=== PATIENT | male | born 1950 | race Caucasian/White ===

== ENCOUNTER 2017-04-26 07:27 | Inpatient (IN) | payer OTHER ==
--- NOTE | 2017-04-11 12:59 | DIAGNOSTIC IMAGING REPORT ---
CHEST 2 VIEWS ROUTINE CLINICAL HISTORY: Primary Osteoarthritis, Left Shoulder. PRE OP COMPARISON STUDY: No previous studies for comparison. FINDINGS: The heart is mildly enlarged. There is aortic tortuosity. There is no failure. There is no focal pulmonary consolidation. There is ankylosis the dorsal spine. No pleural effusions are visualized.[ IMPRESSION: No active disease in the chest. Electronically signed by: Panchito Toscano M.D. 04/11/2017 12:58 PM Dictated Date/Time: 04/11/2017 12:57 PM
[2017-04-11 13:22] LABS: BASO % 0.5 %; BASO ABS # 0.03 K/uL (0-0.2); COMPLETE YES; EOS % 2.8 %; HEMATOCRIT 47.8 % (42-52); IG% 0.3 %; LYMPH % 35.9 %; LYMPH ABS # 2.22 K/uL (1.2-3.4); MEAN CELL VOLUME 94.7 fL (80-100); MEAN CORPUSCULAR HEMOGLOBIN 32.5 pg (25-34); MEAN CORPUSCULAR HGB CONC 34.3 g/dl (32-36); MEAN PLATELET VOLUME 10.5 fL (7.4-10.4); MONO % 9.1 %; NEUT % 51.4 %; PLATELET COUNT 241 K/uL (130-400); RED BLOOD COUNT 5.05 M/uL (4.7-6.1); WHITE BLOOD COUNT 6.18 K/uL (4.8-10.8)
[2017-04-11 13:32] LABS: URINE APPEARANCE CLEAR (CLEAR); URINE BILIRUBIN NEG (NEG); URINE COLOR YELLOW; URINE NITRITE NEG (NEG); URINE PH 5.5 (4.5-7.5); URINE SPECIFIC GRAVITY 1.018 (1.000-1.030); UROBILINOGEN NEG (NEG); ZZUR CULT IF INDIC CLEAN CATCH NO
[2017-04-11 13:35] LABS: PROTHROMBIN TIME (PATIENT) 10.7 SECONDS (9.0-12.0)
[2017-04-11 13:39] LABS: MANUAL MICROSCOPIC REQUIRED? NO; REVIEW REQ? NO
[2017-04-11 13:49] LABS: BLOOD UREA NITROGEN 20 mg/dl (7-18); BUN/CREATININE RATIO 19.2 (10-20); CALCIUM 9.5 mg/dl (8.5-10.1); CARBON DIOXIDE 30 mmol/L (21-32); CHLORIDE 101 mmol/L (98-107); CREATININE 1.03 mg/dl (0.60-1.40); GLUCOSE 94 mg/dl (70-99); POTASSIUM 3.8 mmol/L (3.5-5.1); SODIUM 138 mmol/L (136-145)
[2017-04-18 08:53] VITALS: BMI 43.0
--- NOTE | 2017-04-25 13:12 | History and Physical ---
History & Physical Date Apr 25, 2017. Chief Complaint Patient presents as a 66-year-old white male with complaints of ongoing pain about his left shoulder cyst with of the left glenohumeral DJD failed attempts at viscus supplementation cortical steroid injections physical therapy relative rest activity modification and anti-inflammatories presents for left shoulder hemiarthroplasty versus total shoulder arthroplasty History of Present Illness The patient is a 66 year old male with complaints of Additional History Hepatic Disease: No Endocrine Disorder: No Kidney Disease: No Hypertension: Yes Heart Disease: No Bleeding Tendencies: No Infectious Diseases: No Allergies Coded Allergies: No Known Allergies (Unverified , 04/18/17) Home Medications Scheduled Amlodipine (Norvasc), 5 MG PO HS Cholecalciferol (Vitamin D3), 2,000 UNIT PO QAM Cyanocobalamin (Vitamin B-12), 1,000 MCG PO QAM Escitalopram (Lexapro), 10 MG PO QAM Hctz/Losartan (Hyzaar 25MG/100MG), 1 TAB PO QAM Pravastatin (Pravachol ), 20 MG PO HS Tamsulosin Hcl (Flomax), 0.4 MG PO QPM Physical Examination Skin: warm/dry, no rash Eyes: normal inspection, EOMI, sclerae normal ENT: normal ENT inspection, pharynx normal Head: normocephalic, atraumatic Neck: supple, no adenopathy, trachea midline Respiratory/Chest: lungs clear, normal breath sounds, no respiratory distress Cardiovascular: regular rate, rhythm, no edema, no murmur Abdomen / GI: normal bowel sounds, non tender Back: normal inspection Extremities: normal inspection, normal range of motion, + pertinent finding ( glenohumeral DJD left shoulder) Neurologic/Psych: no motor/sensory deficits, alert, normal reflexes, oriented x 3 Diagnosis Glenohumeral DJD left shoulder Plan of Treatment Left shoulder hemiarthroplasty versus total shoulder arthroplasty postoperative pain management DVT prophylaxis antibiotics as necessary
[~2017-04-26] VITALS: Ht 182.9 cm; Wt 145.4 kg
[2017-04-26] VITALS (9 sets, daily range): BP systolic 102–121; BP diastolic 66–77; PULSE 52–68; TEMP 36.2–36.9; O2SAT 92–98; Ht 182.9 cm; Wt 145.4 kg
--- NOTE | 2017-04-26 07:03 | History & Physical Bridge Note ---
H&P Re-Evaluation Bridge Note: I have examined the patient, reviewed the History & Physical and in the interval since the performance of the History & Physical I have noted the following changes of clinical significance: No changes noted
[~2017-04-26 07:27] MED LIST: ACETAMINOPHEN 500 MG TAB PO SCH; AMLO-110 PO; CEFAZOLIN 3000MG IV PUSH 15 ML IV SCH; CHOL2000 PO; CYAN10005 PO; CeleBREX 200 MG CAP PO SCH; DEXAMETHASONE 4 MG TAB PO SCH; ESCI10TA17 PO; FAMOTIDINE 20 MG TAB PO SCH; FENTANYL CITRATE INJ 50 MCG/1 ML 2 ML VIAL ONE; GABAPENTIN 300 MG CAP PO SCH; HYZ/10015 PO; LACTATED RINGER'S 1000ML 1,000 ML IV SCH; LACTATED RINGER'S 1000ML IV SCH; MIDAZOLAM HCL 1 MG/ML 2ML VIAL ONE; OXYCODONE HCL 10 MG TABCR (OXYCONTIN) PO SCH; PRAV20TA PO; TAMS0.4C38 PO
[2017-04-26] MEDS ORDERED: ROPIVACAINE 0.5% 5 MG/ML 30 ML VIAL ONE (07:49)
[2017-04-26] MEDS ORDERED: EpHEDrine SULFATE INJ 50 MG/ML AMP IV PRN (08:30)
[2017-04-26] MEDS ORDERED: PHENYLEPHRINE 100MCG/ML 5ML SYR IV PRN (08:30)
[2017-04-26] MEDS ORDERED: HYDROmorphone INJ 2 MG/ML SYR/VIAL IV PRN (08:30)
[2017-04-26] MEDS ORDERED: ATROPINE SULFATE 0.1 MG/ML 5ML SYR IV PRN (08:30)
[2017-04-26] MEDS ORDERED: ONDANSETRON INJ 2 MG/ML 2 ML VIAL IV PRN ×2 (08:30→13:15)
[2017-04-26] MEDS ORDERED: LIDOCAINE HCL 2% 2 ML VIAL (20MG/ML) ONE (09:56)
[2017-04-26] MEDS ORDERED: PROPOFOL IV EMULSION 10 MG/ML 20 ML VIAL IV ONE (09:58)
[2017-04-26] MEDS ORDERED: MIDAZOLAM HCL 1 MG/ML 2ML VIAL ONE (10:21)
[2017-04-26] MEDS ORDERED: BACITRACIN 50000 UNIT VIAL ONE (10:32)
[2017-04-26] MEDS ORDERED: THROMBIN FOR SOLN 20000 UNIT KIT ONE (10:32)
[2017-04-26] MEDS ORDERED: SUCCINYLCHOLINE 100MG/5ML SYR IV ONE (11:16)
[2017-04-26] MEDS ORDERED: EpHEDrine SULFATE 50MG/5ML SYR ONE (11:29)
[2017-04-26] MEDS ORDERED: ONDANSETRON INJ 2 MG/ML 2 ML VIAL ONE (11:30)
--- NOTE | 2017-04-26 12:56 | [facility] Operative Report ---
Operative Report Operative Date Apr 26, 2017. Pre-Operative Diagnosis Glenohumeral degenerative joint disease, left shoulder Post-Operative Diagnosis Glenohumeral degenerative joint disease, left shoulder Procedure(s) Performed Left Shoulder Tournier Resurfacing utilizing 48 x [address] Sonido Salmon Network Security Administrator Surgeon(s) David Enriquez PA-C Estimated Blood Loss 15 mL Findings DJD with osteophytes left humeral head Nourse wants to conservative therapy including injections rest activity modification Specimens None Complication(s) None Disposition Recovery Room / PACU Indications Patient presents after failing attempts at conservative management DJD of his left shoulder and large osteophytes humeral head patient presents for hemiarthroplasty Tournier procedure Description of Procedure After proper prepping and draping of the left shoulder region a deltopectoral interval incision was made dissection carried down through the subcutaneous tissues to the region of the deltopectoral interval the deltopectoral interval subsequently developed cephalic vein was retracted lateralward with the deltoid muscle subscapularis tendon was also reflected off of the anterior aspect of the humeral head socially the humeral head was externally rotated and was delivered from the anterior aspect of the shoulder the special attention paid to protect neurovascular structures at all times the osteophytes posterior inferior and anterior aspect of the humeral head were removed the glenoid was inspected presented to be evidence of excellent cartilage involving the glenoid no erosions or bone loss was noted subsequently trials were placed a 48 x 18 gave anatomic reconstruction of the humeral head after reduction it was stability was noted be excellent in both anterior posterior inferior superior dimensions subsequently after trialing the anterior humeral cortex was drilled such that #5 FiberWire 3 were delivered from the anterior aspect of the cortex into the region of the humeral head for later repair of the subscapularis tendon socially the final component was placed and fitted in a press-fit fashion shores reduced subscapular tendon repair back to the a bed of bleeding bone utilizing #5 FiberWire rotator interval was closed with a #1 Ethibond subcutaneous was closed with 2-0 Vicryl 3-0 Vicryl scheduled with manuel a sterile compressive dressing placed patient the deep wound was head Hemovac placed a prior closure of the wound patient placed in shoulder mobilizer taken recovery in stable condition. Network Security Administrator David WOLFE was necessary for prepping draping retraction wound closure defect is subcutaneous and skin was necessary for the case I attest to the content of the Intraoperative Record and any orders documented therein. Any exceptions are noted below.
[2017-04-26] MEDS ORDERED: ALUMINUM/MAGNESIUM SUSP 30 ML UDC PO PRN (13:15)
[2017-04-26] MEDS ORDERED: MAGNESIUM HYDROXIDE SUSP 30 ML UDC PO PRN (13:15)
[2017-04-26] MEDS ORDERED: BISACODYL 10 MG SUPP PR PRN (13:15)
[2017-04-26] MEDS ORDERED: OXYCODONE HCL IR 5 MG TAB (IMMEDIATE RELEASE) PO PRN (13:15)
[2017-04-26] MEDS ORDERED: MoRPHine SULFATE 2 MG/ML CARP IV PRN ×2 (13:15→14:30)
--- NOTE | 2017-04-26 13:37 | Anesthesiology Progress Note ---
Anesthesia Post Op Note Date & Time Apr 26, 2017 at 13:37 Vital Signs Pain Intensity: 0 Vital Signs Past 12 Hours Date Time Temp Pulse Resp B/P (MAP) Pulse Ox O2 Delivery O2 Flow Rate FiO2 04/26/17 13:31 111/64 04/26/17 13:30 67 16 04/26/17 13:30 65 16 97 04/26/17 13:26 107/65 04/26/17 13:25 64 19 04/26/17 13:25 65 19 97 04/26/17 13:21 102/71 04/26/17 13:20 65 16 04/26/17 13:20 65 16 95 04/26/17 13:16 107/67 04/26/17 13:15 17 04/26/17 13:15 69 17 04/26/17 13:15 36.4 65 18 107/67 94 Oxymask 10 04/26/17 07:50 36.2 52 20 98 Room Air Notes Mental Status: alert / awake / arousable, participated in evaluation Pt Amnestic to Procedure: Yes Nausea / Vomiting: adequately controlled Pain: adequately controlled Airway Patency, RR, SpO2: stable & adequate BP & HR: stable & adequate Hydration State: stable & adequate Anesthetic Complications: no major complications apparent
[2017-04-26] MEDS ORDERED: PHENYLEPHRINE 100MCG/ML 5ML SYR ONE (14:19)
--- NOTE | 2017-04-26 14:23 | DIAGNOSTIC IMAGING REPORT ---
L SHOULDER MIN 2 VIEWS ROUTINE CLINICAL HISTORY: Post shoulder surgery COMPARISON STUDY: None. FINDINGS: Status post resurfacing of the left humeral head. The hardware appears intact. Skin manuel and surgical drains are in place. No fracture or dislocation within the left shoulder. IMPRESSION: Postoperative changes within the left shoulder as described above. No evidence for hardware complication. Electronically signed by: Matthew Lubin M.D. 04/26/2017 2:21 PM Dictated Date/Time: 04/26/2017 2:21 PM
[2017-04-26] MEDS ORDERED: MoRPHine SULFATE 10 MG/ML CARP/VIAL IV PRN (14:30)
[2017-04-26] MEDS ORDERED: MoRPHine SULFATE 4 MG/ML 1 ML CARP\\VIAL IV PRN (14:30)
[2017-04-26] MEDS: D5W AND 1/2NSS + 20MEQ KCL 1,000 ML IV SCH (15:40)
[2017-04-26] MEDS: FERROUS GLUCONATE 324 MG TAB PO SCH (17:42)
[2017-04-26] MEDS: ACETAMINOPHEN 500 MG TAB PO SCH (17:43)
[2017-04-26] MEDS: CEFAZOLIN IV 2,000 MG in SYRINGE 0 ML IV SCH (17:43)
[2017-04-26] MEDS ORDERED: NURSING VERBAL MED ORDER ONE (20:15)
[2017-04-26] MEDS ORDERED: PROMETHAZINE HCL INJ 12.5 MG in SODIUM CHLORIDE 0.9% 50ML 50 ML IV PRN (20:30)
[2017-04-26] MEDS: DOCUSATE SODIUM 100 MG CAP PO SCH (20:37)
[2017-04-26] MEDS: CeleBREX 200 MG CAP PO SCH (20:39)
[2017-04-26] MEDS ORDERED: TAMSULOSIN HCL 0.4 MG CAP PO SCH (21:00)
[2017-04-26] MEDS ORDERED: PRAVASTATIN SOD 20 MG TAB PO SCH (21:00)
[2017-04-26] MEDS ORDERED: AMLODIPINE BESYLATE 5 MG TAB PO SCH (21:00)
[2017-04-27] MEDS: D5W AND 1/2NSS + 20MEQ KCL 1,000 ML IV SCH (01:48)
[2017-04-27] MEDS: CEFAZOLIN IV 2,000 MG in SYRINGE 0 ML IV SCH (01:48)
[2017-04-27 03:38] VITALS: BP 102/66; PULSE 59; TEMP 36.4; O2SAT 97
[2017-04-27] MEDS: ACETAMINOPHEN 500 MG TAB PO SCH (05:24)
[2017-04-27 07:20] LABS: HEMATOCRIT 40.8 % (42-52); MEAN CELL VOLUME 93.8 fL (80-100); MEAN CORPUSCULAR HEMOGLOBIN 32.9 pg (25-34); MEAN PLATELET VOLUME 10.5 fL (7.4-10.4); PLATELET COUNT 239 K/uL (130-400); RED BLOOD COUNT 4.35 M/uL (4.7-6.1); WHITE BLOOD COUNT 10.47 K/uL (4.8-10.8)
[2017-04-27 07:34] VITALS: BP 112/71; PULSE 59; TEMP 36.7; O2SAT 96
--- NOTE | 2017-04-27 07:38 | Clinical Documentation Query ---
In order for coders to capture the patient's BMI, obesity must be documented in the patient's medical record. A significantly high ( > 40) or low ( < 19) BMI will qualify as a CC and impact the severity of illness and risk of mortality of your patient. *A BMI > 40 is an endocrine diagnosis (MDC 10). *Morbid obesity is defined by the [employer] [place] [employer] as having a BMI >40 or, being 100 pounds or more above ideal body weight or, having a BMI >35 with one or more co-morbid conditions. *The Adult BMI diagnoses are for persons over the age of 21; the Pediatric BMI diagnoses are for persons 2-20 years of age. Please clarify and document your clinical opinion in the progress notes and discharge summary. Terms such as "probable", "suspected", "likely", "questionable", "possible", or "still to be ruled out" are acceptable. IF IN AGREEMENT, YOU MUST DOCUMENT ABOVE DIAGNOSTIC STATEMENT IN DAILY PROGRESS NOTES AND DISCHARGE SUMMARY. This document is not part of the patient's record. Thank You, Cici Ernandez RN [phone]
[2017-04-27 07:45] LABS: BUN/CREATININE RATIO 14.7 (10-20); CALCIUM 8.9 mg/dl (8.5-10.1); POTASSIUM 4.4 mmol/L (3.5-5.1)
--- NOTE | 2017-04-27 07:54 | Orthopedic Progress Note ---
Orthopedic Progress Note Date of Service Apr 27, 2017. Subjective Post OP Day: 1 Reports: feeling well, Denies: chest pain, SOB, nausea / vomiting, light headedness, calf pain Objective calves soft nontender, N/V intact, capillary refill less than 2 sec., dressing C /D/I, A&O x3, toes mobile, hemovac drainage (265/50CC PER SHIFT) Date Time Temp Pulse Resp B/P (MAP) Pulse Ox O2 Delivery O2 Flow Rate FiO2 04/27/17 07:34 36.7 59 18 112/71 (85) 96 Nasal Cannula 2.0 04/27/17 07:26 Room Air 04/27/17 03:38 36.4 59 18 102/66 (78) 97 Nasal Cannula 4.0 04/27/17 00:32 Nasal Cannula 2.0 04/26/17 23:36 36.9 55 20 102/68 (79) 95 Nasal Cannula 2.0 04/26/17 21:08 36.4 59 18 104/66 (79) 92 Nasal Cannula 2.0 04/26/17 17:30 63 18 115/76 (89) 95 Nasal Cannula 2.0 04/26/17 16:32 36.4 64 18 104/66 (79) 95 Nasal Cannula 2.0 04/26/17 16:00 Nasal Cannula 2.0 04/26/17 15:36 36.5 67 18 121/77 (92) 92 Nasal Cannula 2.0 04/26/17 15:00 36.5 68 18 117/74 (88) 94 Nasal Cannula 2.0 04/26/17 14:54 65 16 114/76 (89) 94 2.0 04/26/17 14:30 93 Nasal Cannula 2.0 04/26/17 14:30 93 Nasal Cannula 2.0 04/26/17 14:30 36.6 64 16 115/75 (88) 93 Nasal Cannula 2.0 04/26/17 14:09 64 13 94 04/26/17 14:09 64 13 04/26/17 14:06 115/80 04/26/17 14:04 65 12 04/26/17 14:04 65 12 94 04/26/17 14:01 122/71 04/26/17 13:59 67 12 04/26/17 13:59 66 12 92 04/26/17 13:56 124/84 04/26/17 13:54 65 14 04/26/17 13:54 65 14 92 04/26/17 13:53 112/70 04/26/17 13:52 66 20 04/26/17 13:52 65 20 99/60 93 04/26/17 13:47 64 13 117/61 92 04/26/17 13:47 64 13 04/26/17 13:42 66 19 04/26/17 13:42 66 19 93 04/26/17 13:41 118/72 04/26/17 13:40 36.7 68 17 118/72 (90) 93 Nasal Cannula 2 04/26/17 13:37 67 15 97 04/26/17 13:37 66 15 04/26/17 13:36 112/65 04/26/17 13:32 64 15 04/26/17 13:32 64 15 97 04/26/17 13:31 111/64 04/26/17 13:30 67 16 04/26/17 13:30 65 16 97 04/26/17 13:26 107/65 04/26/17 13:25 64 19 04/26/17 13:25 65 19 97 04/26/17 13:21 102/71 04/26/17 13:20 65 16 04/26/17 13:20 65 16 95 04/26/17 13:16 107/67 04/26/17 13:15 17 04/26/17 13:15 69 17 04/26/17 13:15 36.4 65 18 107/67 94 Oxymask 10 Laboratory Results 24 Hours: Test 04/27/17 06:58 Hematocrit 40.8 % Hemoglobin 14.3 g/dL Assessment & Plan Assessment: POD#1 SP LEFT SHOULDER RESURFACING Plan: PT/OT DVT PROPH PAIN MANAGEMENT DC PLANNING- HOME TODAY, NO PT.
[2017-04-27] MEDS ORDERED: CLB200 PO (07:55)
[2017-04-27] MEDS ORDERED: ONDA8TAB6 PO (07:55)
[2017-04-27] MEDS ORDERED: RXC5 PO (07:55)
[2017-04-27] MEDS ORDERED: ACET-24 PO (07:55)
--- NOTE | 2017-04-27 07:58 | Discharge Instructions ---
Discharge Instructions Date of Service Apr 27, 2017. Admission Reason for Admission: Left Shoulder Osteoarthritis Discharge Discharge Diagnosis / Problem: SP LEFT SHOULDER RESURFACING Discharge Goals Goal(s): Decrease discomfort, Improve function, Increase independence Activity Recommendations Activity Limitations: per Instructions/Follow-up section . Instructions / Follow-Up Instructions / Follow-Up ACTIVITY RECOMMENDATIONS: SELF CARE INSTRUCTIONS AFTER TOTAL SHOULDER RESURFACING A. You may do daily exercises as taught in physical therapy while in hospital. No lifting with the operative arm. B. You are to wear your sling/immobilizer at all times EXCEPT when performing your daily exercises and for hygiene purposes. C. You may perform dry, daily dressing changes. Please keep your incision covered. You may shower 48 hours after surgery. Do not apply soap or any ointment/ lotions directly over incision. Do not soak incision in bath tub/swimming pool. D. You may use ice as needed to operative shoulder. SPECIAL CARE INSTRUCTIONS: VERY IMPORTANT TO READ AND REVIEW A. There are a few signs you need to watch for after you are home. Call [facility] at [phone] if you experience any of the followin. Increased severe shoulder pain. Some pain is expected especially when you exercise. 2. Increased swelling in you shoulder or arm; pain or swelling in either upper extremity. 3. Any fluid drainage from the incision. 4. Shortness of breath or chest pain. B. Please call [facility] at [phone] if you have any questions or concerns about your operation or recovery. C. Call your physician if: 1. Temperature is greater than 101 degrees (F). 2. Pain is not relieved by prescribed pain medications. 3. Increase drainage or redness from incision. 4. Unanswered questions or concerns. FOLLOW UP VISIT: Please call [facility] at [phone] to schedule a follow up appointment with Dr. SHERIFF or his PA in 12-14 days from your surgery date. Current Hospital Diet Patient's current hospital diet: Regular Diet Discharge Diet Recommended Diet: Regular Diet Procedures Procedures Performed: Left Shoulder Tournier Resurfacing utilizing 48 x 18 Tournier implant Pending Studies Studies pending at discharge: no Medical Emergencies . Who to Call and When: Medical Emergencies: If at any time you feel your situation is an emergency, please call 911 immediately. . Non-Emergent Contact Non-Emergency issues call your: Surgeon . "Provider Documentation" section prepared by Erin Mcgill. . VTE Core Measure Inpt VTE Proph given/why not?: Treatment not indicated
[2017-04-27] MEDS: CeleBREX 200 MG CAP PO SCH (08:52)
[2017-04-27] MEDS: DOCUSATE SODIUM 100 MG CAP PO SCH (08:52)
[2017-04-27] MEDS: FERROUS GLUCONATE 324 MG TAB PO SCH (08:52)
[2017-04-27] MEDS ORDERED: PANTOprazole SOD 40 MG TAB PO SCH (09:00)
[2017-04-27] MEDS ORDERED: ESCITALOPRAM OXALATE 10 MG TAB PO SCH (09:00)
[2017-04-27] MEDS ORDERED: LOSARTAN/HCTZ 50-12.5 EA TAB PO SCH (09:00)
[2017-04-27] MEDS ORDERED: MULTIVITAMIN TAB PO SCH (09:00)
--- NOTE | 2017-04-27 09:02 | Anesthesiology Progress Note ---
Anesthesia Post Op Note Date & Time Apr 27, 2017 at 09:02 Vital Signs Pain Intensity: 0.0 Vital Signs Past 12 Hours Date Time Temp Pulse Resp B/P (MAP) Pulse Ox O2 Delivery O2 Flow Rate FiO2 04/27/17 07:34 36.7 59 18 112/71 (85) 96 Nasal Cannula 2.0 04/27/17 07:26 Room Air 04/27/17 03:38 36.4 59 18 102/66 (78) 97 Nasal Cannula 4.0 04/27/17 00:32 Nasal Cannula 2.0 04/26/17 23:36 36.9 55 20 102/68 (79) 95 Nasal Cannula 2.0 04/26/17 21:08 36.4 59 18 104/66 (79) 92 Nasal Cannula 2.0 Notes Mental Status: alert / awake / arousable, participated in evaluation Pt Amnestic to Procedure: Yes Nausea / Vomiting: improving with treatment Pain: adequately controlled Airway Patency, RR, SpO2: stable & adequate BP & HR: stable & adequate Hydration State: stable & adequate Anesthetic Complications: no major complications apparent Anesthetic Complications: PONV
[2017-04-27 12:26] VITALS: BP 112/71; PULSE 59; TEMP 36.7; O2SAT 96
--- NOTE | 2017-05-01 12:40 | DISCHARGE SUMMARY ---
DISCHARGE DIAGNOSIS: Degenerative joint disease, left shoulder. SECONDARY DIAGNOSES: Hypertension, hypercholesterolemia. CONSULTATIONS: None. COMPLICATIONS: None. PROCEDURES: Left shoulder Tornier resurfacing by Dr. Salmon on 04/26/2017. BRIEF HISTORY: As dictated in history and physical. HOSPITAL SUMMARY: The patient was admitted on the above date and had the above-noted surgery performed which he tolerated well. On his first postoperative day, he is feeling well. Calves were soft and nontender, neurovascularly intact. Capillary refill was less than 2 seconds. Dressings were clean, dry and intact and vital signs were stable. Hemoglobin was 14.3. He had been started on physical therapy protocol and was continued on pain management and was remaining stable and it was felt he could be discharged to home on 04/27/2017. For further review, please see chart. LABORATORY AND X-RAY DATA: As per chart. DISCHARGE INSTRUCTIONS: The patient was discharged to home in satisfactory condition on 04/27/2017. DIET: Regular. ACTIVITY: Follow total shoulder resurfacing instruction sheets and special care instructions as noted and follow up with Dr. Salmon in 2 weeks. The patient to call for appointment if one has not been made for you. DISCHARGE MEDICATIONS: Acetaminophen 1000 mg p.o. q. 8 hours for 30 days, Celebrex 200 mg p.o. b.i.d., Zofran 8 mg p.o. q. 8 hours p.r.n. nausea, oxycodone 5-10 mg p.o. q. 4 hours p.r.n. and resume home meds as listed in discharge instructions.
== END 2017-04-27 14:16 | disposition home or self-care (01) | DRG 494 ==
LOC: C.ACU 07:27 → C.3E 10:00 → ENRESERV 14:12
PROVIDERS: ADMIT Orthopaedic Surgery; ATTEND Orthopaedic Surgery
PROC: 0PR Upper Bones, Replacement (ICD-10-PCS; principal; 2017-04-26 10:00)
DX: M19.012 Primary osteoarthritis, left shoulder (principal); I10 Essential (primary) hypertension; E78.00 Pure hypercholesterolemia, unspecified

== ENCOUNTER 2017-07-25 10:05 | Inpatient (IN) | payer OTHER ==
[2017-06-21 10:44] VITALS: Ht 182.9 cm; Wt 145.4 kg
[2017-07-25] VITALS (8 sets, daily range): BP systolic 125–158; BP diastolic 73–100; PULSE 59–69; TEMP 36.4–36.7; O2SAT 90–95
[~2017-07-25] VITALS: Ht 182.9 cm; Wt 145.4 kg
[2017-07-25] MEDS: TRANEXAMIC ACID INJ 1,000 MG x 2 Bags IV SCH ×4 (06:30→11:34)
--- NOTE | 2017-07-25 07:10 | History and Physical ---
History & Physical Date Jul 25, 2017. Chief Complaint Patient presents with severe end-stage joint disease involving the right shoulder for consideration for a resurfacing versus hemiarthroplasty versus total shoulder arthroplasty [facility] patient been Nourse wants to conservative therapy 66-year-old white male large muscle conservative therapy including anti-inflammatories relative rest activity modification and viscous supplementation injections in the shoulder joint presents for shoulder resurfacing hemiarthroplasty versus hemiarthroplasty versus total shoulder arthroplasty degenerative History of Present Illness The patient is a 66 year old male with complaints of ongoing right shoulder pain for shoulder arthroplasty possible resurfacing arthroplasty Past Medical/Surgical History Medical Problems: (1) DJD of left shoulder Additional History Hepatic Disease: No Endocrine Disorder: No Kidney Disease: No Hypertension: No Heart Disease: No Bleeding Tendencies: No Infectious Diseases: No Allergies Coded Allergies: No Known Allergies (Unverified , 06/21/17) Home Medications Scheduled Amlodipine (Norvasc), 5 MG PO HS Cyanocobalamin (Vitamin B-12), 1,000 MCG PO QAM Ergocalciferol (Vitamin D 38823 Unit), 1 CAP PO WK Escitalopram (Lexapro), 10 MG PO QAM Hctz/Losartan (Hyzaar 25MG/100MG), 1 TAB PO QAM Pravastatin (Pravachol ), 20 MG PO HS Tamsulosin Hcl (Flomax), 0.4 MG PO QPM Physical Examination Skin: warm/dry Eyes: normal inspection, EOMI, sclerae normal ENT: normal ENT inspection, pharynx normal Head: normocephalic, atraumatic Neck: supple, no adenopathy, trachea midline Respiratory/Chest: lungs clear, normal breath sounds, no respiratory distress Cardiovascular: regular rate, rhythm, no edema, no murmur Abdomen / GI: normal bowel sounds, non tender Back: normal inspection Extremities: + pertinent finding (DJD right shoulder joint) Diagnosis Patient presents with a DJD for surgical resurfacing versus having arthroplasty versus total shoulder arthroplasty. Plan of Treatment She will resurfacing versus shoulder arthroplasty versus total shoulder arthroplasty pain 5/surgery pain management DVT prophylaxis and box is necessary
[~2017-07-25 10:05] MED LIST changes: +ATROPINE SULFATE 0.1 MG/ML 5ML SYR IV PRN; -CEFAZOLIN 3000MG IV PUSH 15 ML IV SCH; +CEFAZOLIN 3000MG IV PUSH 22.5 ML IV SCH; -CHOL2000 PO; +DEXAMETHASONE SOD INJ 4 MG/ML VIAL ONE; +ERGO500037 PO; +EpHEDrine SULFATE INJ 50 MG/ML AMP IV PRN; +FENTANYL CITRATE INJ 50 MCG/1 ML 2 ML VIAL IV PRN; -FENTANYL CITRATE INJ 50 MCG/1 ML 2 ML VIAL ONE; -GABAPENTIN 300 MG CAP PO SCH; +GABAPENTIN 900 MG PO SCH; +HYDROmorphone INJ 0.5 MG/0.5 ML SYR IV PRN; +LABETALOL HCL IV 5 MG/ML 20ML IV PRN; +MEPERIDINE HCL 25 MG/ML CARP IV PRN; +METOCLOPRAMIDE HCL 10 MG TAB PO SCH; -MIDAZOLAM HCL 1 MG/ML 2ML VIAL ONE; +ONDANSETRON INJ 2 MG/ML 2 ML VIAL IV PRN; -OXYCODONE HCL 10 MG TABCR (OXYCONTIN) PO SCH; +ROPIVACAINE 0.5% 5 MG/ML 30 ML VIAL ONE; +ROPIVACAINE 5MG/ML 30 ML 150 MG, BUPIVACAINE 0.5% MPF INJ 30 ML, EpINEphrine HCL INJ 0.... INFIL SCH
[2017-07-25] MEDS ORDERED: THROMBIN FOR SOLN 20000 UNIT KIT ONE (11:28)
[2017-07-25] MEDS ORDERED: BACITRACIN 50000 UNIT VIAL ONE (11:28)
[2017-07-25] MEDS ORDERED: MIDAZOLAM HCL 1 MG/ML 2ML VIAL ONE (11:33)
[2017-07-25] MEDS ORDERED: FENTANYL CITRATE INJ 50 MCG/1 ML 2 ML VIAL ONE ×2 (11:34→12:22)
[2017-07-25] MEDS ORDERED: LIDOCAINE HCL 2% 2 ML VIAL (20MG/ML) ONE ×2 (11:34→12:21)
[2017-07-25] MEDS ORDERED: EpHEDrine SULFATE 50MG/5ML SYR ONE ×2 (12:21→13:35)
[2017-07-25] MEDS ORDERED: DEXAMETHASONE SOD INJ 4 MG/ML VIAL ONE (12:21)
[2017-07-25] MEDS ORDERED: PROPOFOL IV EMULSION 10 MG/ML 20 ML VIAL IV ONE (12:21)
[2017-07-25] MEDS ORDERED: ROCURONIUM BROMIDE 10 MG/ML 5 ML VIAL IV ONE (12:21)
--- NOTE | 2017-07-25 13:26 | [facility] Post Operative Brief Note ---
Immediate Operative Summary Operative Date Jul 25, 2017. Pre-Operative Diagnosis Right shoulder pain Post-Operative Diagnosis Same as Preop Procedure(s) Performed Right Shoulder Resurfacing Surgeon Dr. Julio C Salmon Training And Development Professional Surgeon(s) Harper WOLFE Estimated Blood Loss 15ML Findings Consistent with Post-Op Diagnosis Specimens NONE Anesthesia Type General Complication(s) none Disposition Disposition: Recovery Room / PACU
[2017-07-25] MEDS ORDERED: HYDROmorphone INJ 2 MG/ML SYR/VIAL ONE (13:31)
--- NOTE | 2017-07-25 13:31 | [facility] Operative Report ---
Operative Report Operative Date Jul 25, 2017. Pre-Operative Diagnosis Right shoulder pain Post-Operative Diagnosis Same as Preop Procedure(s) Performed Right Shoulder Resurfacing utilizing tournier 48 x 18 resurfacing hemiarthroplasty head Surgeon Dr. Julio C Salmon Master Tax Advisor Surgeon(s) Harper WOLFE Estimated Blood Loss 15ML Findings Patient presents with glenohumeral DJD with severe cartilage loss and eburnation of bone with subchondral cysts marginal osteophytes joint space narrowing of the right shoulder Nourse wants to conservative therapy including viscous supplementation or steroid injections relative rest activity modification presents for shoulder resurfacing arthroplasty Specimens NONE Anesthesia Type General Complication(s) none Disposition Recovery Room / PACU Indications Patient presents for for resurfacing arthroplasty after failing attempts at conservative management of the right shoulder with injections cortisone injections viscus supplementation relative rest activity modification times surgical findings are noted marginal osteophytes subchondral sclerosis intra- articular loose bodies degenerative glenohumeral joint Description of Procedure After proper prepping draping the right shoulder region and anterior deltopectoral incision made special senses pain. Cephalic vein opines retracted lateralward with deltoid of the careful meticulous dissection and hemostasis obtained down to the region of the anterior aspect of subscapularis subscapularis was reflected off the anterior humeral head and tagged for later repair socially of the biceps tendon was carefully retracted out of harm's way of the humeral head was subsequently dislocated S for maximal exposure anteriorly anterior-inferior osteophytes were all excised after excision of all osteophytes wound was irrigated with copious amounts of sterile saline solution the wound was irrigated with saline solution the glenoid was inspected socially was reamed to 48 x 18 the anterior humeral head neck for drilled to accommodate a #5 FiberWire sutures were passed prior to passing the final component trial components in reduction gave excellent stability superior-inferior anterior and posterior with a concentric reduction socially the final component was press fit onto the humeral head without difficulty the subscapular tendon was repaired back to its original bed utilizing a #5 FiberWire as well as a #0 Ethibond rotator cuff was repaired utilizing 0 Ethibond meticulous hemostasis obtained and maintained medium bore Hemovacs placed deep wounds of the deep fascia repaired utilizing #2-0 Vicryl subcutaneous was closed with 0 Vicryl skin was closed skin clips sterile compressive dressing as well as shoulder immobilizer patient taken recovery in stable condition Bernardo WOLFE was necessary for prepping draping retraction wound closure defect is subcutaneous and skin was necessary for the case I attest to the content of the Intraoperative Record and any orders documented therein. Any exceptions are noted below.
[2017-07-25] MEDS ORDERED: GLYCOPYRROLATE INJ 0.2 MG/ML VIAL ONE (13:35)
[2017-07-25] MEDS ORDERED: KETOROLAC TROMETHAMINE 30 MG/ML VIAL ONE (13:35)
[2017-07-25] MEDS ORDERED: NEOSTIGMINE METHYLSULFATE 5 MG/5 ML SYR ONE (13:35)
[2017-07-25] MEDS ORDERED: ONDANSETRON INJ 2 MG/ML 2 ML VIAL ONE ×2 (13:35→14:18)
[2017-07-25] MEDS ORDERED: ZOLPIDEM TARTRATE 5 MG TAB PO PRN (14:15)
[2017-07-25] MEDS ORDERED: ONDANSETRON INJ 2 MG/ML 2 ML VIAL IV PRN (14:15)
[2017-07-25] MEDS ORDERED: OXYCODONE HCL IR 5 MG TAB (IMMEDIATE RELEASE) PO PRN (14:15)
[2017-07-25] MEDS ORDERED: BISACODYL 10 MG SUPP PR PRN (14:15)
[2017-07-25] MEDS ORDERED: ALUMINUM/MAGNESIUM SUSP 30 ML UDC PO PRN (14:15)
[2017-07-25] MEDS ORDERED: MoRPHine SULFATE 2 MG/ML CARP IV PRN (14:15)
[2017-07-25] MEDS ORDERED: MAGNESIUM HYDROXIDE SUSP 30 ML UDC PO PRN (14:15)
[2017-07-25] MEDS ORDERED: SOD PHOSPHATE/SOD BIPHOSPHATE ENEMA 132 ML BTL PR PRN (14:15)
--- NOTE | 2017-07-25 14:29 | DIAGNOSTIC IMAGING REPORT ---
R SHOULDER MIN 2 VIEWS ROUTINE CLINICAL HISTORY: Post shoulder surgery COMPARISON: None. DISCUSSION: Operative changes consistent with a right shoulder arthroplasty. Anatomic alignment. Expected soft tissue postoperative change. IMPRESSION: Anatomic alignment post right shoulder arthroplasty The above report was generated using voice recognition software. It may contain grammatical, syntax or spelling errors. Electronically signed by: Bernardo Johnson M.D. 07/25/2017 2:28 PM Dictated Date/Time: 07/25/2017 2:27 PM
[2017-07-25] MEDS ORDERED: MoRPHine SULFATE 4 MG/ML 1 ML CARP\\VIAL IV PRN (15:30)
[2017-07-25] MEDS ORDERED: MoRPHine SULFATE 10 MG/ML CARP/VIAL IV PRN (15:30)
--- NOTE | 2017-07-25 15:34 | Anesthesiology Progress Note ---
Anesthesia Post Op Note Date & Time Jul 25, 2017 at 15:33 Vital Signs Pain Intensity: 0.0 Vital Signs Past 12 Hours Date Time Temp Pulse Resp B/P (MAP) Pulse Ox O2 Delivery O2 Flow Rate FiO2 07/25/17 15:00 94 Nasal Cannula 4.0 07/25/17 15:00 36.4 69 15 158/83 (108) 94 Nasal Cannula 4.0 07/25/17 15:00 94 Nasal Cannula 4.0 07/25/17 14:40 36.1 64 16 115/67 94 Nasal Cannula 4 07/25/17 14:30 73 16 144/88 93 Nasal Cannula 4 07/25/17 14:20 66 16 147/92 94 Nasal Cannula 4 07/25/17 14:10 65 16 153/94 95 Oxymask 15 07/25/17 14:00 64 14 143/85 98 Oxymask 15 07/25/17 13:54 36.1 68 14 147/88 95 Oxymask 15 07/25/17 11:07 36.4 59 20 158/100 95 Room Air Notes Mental Status: alert / awake / arousable, participated in evaluation Pt Amnestic to Procedure: Yes Nausea / Vomiting: adequately controlled Pain: adequately controlled Airway Patency, RR, SpO2: stable & adequate BP & HR: stable & adequate Hydration State: stable & adequate Anesthetic Complications: no major complications apparent
[2017-07-25] MEDS: KETOROLAC TROMETHAMINE 15 MG/ML VIAL IV. SCH (17:40)
[2017-07-25] MEDS: D5W AND 1/2NSS + 20MEQ KCL 1,000 ML IV SCH (18:17)
[2017-07-25] MEDS: CEFAZOLIN IV 2,000 MG in SYRINGE 0 ML IV SCH (20:30)
[2017-07-25] MEDS ORDERED: NURSING VERBAL MED ORDER ONE (20:45)
[2017-07-25] MEDS ORDERED: AMLODIPINE BESYLATE 5 MG TAB PO SCH (21:00)
[2017-07-25] MEDS ORDERED: SENNA 8.6 MG TAB PO SCH (21:00)
[2017-07-25] MEDS ORDERED: PRAVASTATIN SOD 20 MG TAB PO SCH (21:00)
[2017-07-25] MEDS ORDERED: TAMSULOSIN HCL 0.4 MG CAP PO SCH (21:00)
[2017-07-25] MEDS ORDERED: PROMETHAZINE HCL INJ 25 MG in SODIUM CHLORIDE 0.9% 50ML 50 ML IV PRN (21:15)
[2017-07-25] MEDS: DOCUSATE SODIUM 100 MG CAP PO SCH (21:52)
[2017-07-25] MEDS: ACETAMINOPHEN 500 MG TAB PO SCH (21:53)
[2017-07-25] MEDS ORDERED: LIDOCAINE HCL 2% JELLY 30 ML TUBE EXT PRN (22:45)
[2017-07-26] MEDS: KETOROLAC TROMETHAMINE 15 MG/ML VIAL IV. SCH ×3 (00:12→11:28)
[2017-07-26] MEDS: D5W AND 1/2NSS + 20MEQ KCL 1,000 ML IV SCH (01:25)
[2017-07-26 03:28] VITALS: BP 131/85; PULSE 95; TEMP 36.4; O2SAT 93
[2017-07-26] MEDS: CEFAZOLIN IV 2,000 MG in SYRINGE 0 ML IV SCH (04:18)
[2017-07-26] MEDS: ACETAMINOPHEN 500 MG TAB PO SCH ×2 (05:25→14:06)
[2017-07-26] MEDS ORDERED: NURSING VERBAL MED ORDER ONE (06:30)
[2017-07-26 06:39] LABS: HEMATOCRIT 42.4 % (42-52); HEMOGLOBIN 14.8 g/dL (14.0-18.0); MEAN CELL VOLUME 93.2 fL (80-100); MEAN CORPUSCULAR HEMOGLOBIN 32.5 pg (25-34); MEAN CORPUSCULAR HGB CONC 34.9 g/dl (32-36); MEAN PLATELET VOLUME 10.6 fL (7.4-10.4); PLATELET COUNT 228 K/uL (130-400); RED CELL DISTRIBUTION WIDTH CV 12.6 % (11.5-14.5); RED CELL DISTRIBUTION WIDTH SD 42.9 fL (36.4-46.3)
[2017-07-26 07:10] LABS: CALCIUM 8.9 mg/dl (8.5-10.1); CREATININE 1.25 mg/dl (0.60-1.40); POTASSIUM 4.6 mmol/L (3.5-5.1)
--- NOTE | 2017-07-26 08:02 | Discharge Instructions ---
Discharge Instructions Date of Service Jul 26, 2017. Admission Reason for Admission: Right Shoulder Osteoarthritis Discharge Discharge Diagnosis / Problem: right shoulder resurfacing hemiarthroplasty Discharge Goals Goal(s): Decrease discomfort, Improve function, Increase independence Activity Recommendations Activity Limitations: as noted below Lifting Limitations: until after follow-up appointment Shower/Bathe: tomorrow . Instructions / Follow-Up Instructions / Follow-Up ACTIVITY RECOMMENDATIONS: SELF CARE INSTRUCTIONS AFTER SHOULDER RESURFACING A. You may do daily exercises as taught in physical therapy while in hospital. No lifting with the operative arm. Please schedule your outpatient physical therapy appointment to begin within 2-3 days after leaving the hospital. Specific restrictions will be written on your physical therapy prescription that is provided to you. B. You are to wear your sling/immobilizer at all times EXCEPT when performing your daily exercises, participating in physical therapy and for hygiene purposes. C. You may perform dry, daily dressing changes. Please keep your incision covered. You may shower 48 hours after surgery. Do not apply soap or any ointment/ lotions directly over incision. Do not soak incision in bath tub/swimming pool. D. You may use ice as needed to operative shoulder. SPECIAL CARE INSTRUCTIONS: MEDICATION INSTRUCTIONS: *It is recommended you take Aspirin 325mg daily for four weeks post-op. VERY IMPORTANT TO READ AND REVIEW A. There are a few signs you need to watch for after you are home. Call [facility] at [phone] if you experience any of the followin. Increased severe shoulder pain. Some pain is expected especially when you exercise. 2. Increased swelling in you shoulder or arm; pain or swelling in either upper extremity. 3. Any fluid drainage from the incision. 4. Shortness of breath or chest pain. B. Please call [facility] at [phone] if you have any questions or concerns about your operation or recovery. C. Call your physician if: 1. Temperature is greater than 101 degrees (F). 2. Pain is not relieved by prescribed pain medications. 3. Increase drainage or redness from incision. 4. Unanswered questions or concerns. D. DERMABOND Prineo- This is a mesh tape dressing that is covered with glue. It should remain in place until the incision is properly healed, usually 10-14 days. This dressing is designed to naturally slough off. You may trim the excess mesh tape as it peels off. Incision may be briefly wet in a shower. Dry immediately by blotting with a clean, dry towel. Do not bath or swim until instructed by your doctor. Do not scratch, rub, or pick at the dressing. Do not apply any topical ointments or lotions until dressing is completely removed and/or instructed by your doctor. There may be a small piece of suture material at one end of your incision. Do not pull or trim this. If it is bothersome or catching on clothing, you may cover it with a band-aid. FOLLOW UP VISIT: Please call [facility] at [phone] to schedule a follow up appointment with Dr. Salmon or his PA in 12-14 days from your surgery date. YOU WILL BE GOING HOME WITH A ABURTO CATHETER IN PLACE. YOU WILL NEED TO FOLLOW UP WITH YOUR UROLOGIST THIS WEEK TO HAVE THE CATHETER REMOVED AND START VOIDING TRIALS. Current Hospital Diet Patient's current hospital diet: Regular Diet Discharge Diet Recommended Diet: Regular Diet Procedures Procedures Performed: Right Shoulder Resurfacing utilizing tournier 48 x 18 resurfacing hemiarthroplasty head Pending Studies Studies pending at discharge: no Medical Emergencies . Who to Call and When: Medical Emergencies: If at any time you feel your situation is an emergency, please call 911 immediately. . Non-Emergent Contact Non-Emergency issues call your: Primary Care Provider, Surgeon . "Provider Documentation" section prepared by Bernardo Garcia. . VTE Core Measure Inpt VTE Proph given/why not?: Other Anticoagulation (ASA 325mg daily x 4 weeks ) [place] Drug Monitoring Program Search Results: patient reviewed within database, no issues identified
[2017-07-26] MEDS ORDERED: CLC100 PO (08:05)
[2017-07-26] MEDS ORDERED: ACET-24 PO (08:05)
[2017-07-26] MEDS ORDERED: CLB200 PO (08:05)
[2017-07-26] MEDS ORDERED: RXC5 PO (08:05)
[2017-07-26] MEDS ORDERED: ASPEC325 PO (08:05)
[2017-07-26] MEDS ORDERED: ONDA8TAB6 PO (08:06)
[2017-07-26 08:15] VITALS: BP 122/75; PULSE 66; TEMP 36.5; O2SAT 93
[2017-07-26] MEDS: DOCUSATE SODIUM 100 MG CAP PO SCH (08:28)
[2017-07-26] MEDS ORDERED: LOSARTAN/HCTZ 50-12.5 EA TAB PO SCH (09:00)
[2017-07-26] MEDS ORDERED: MULTIVITAMIN TAB PO SCH (09:00)
[2017-07-26] MEDS ORDERED: PANTOprazole SOD 40 MG TAB PO SCH (09:00)
[2017-07-26] MEDS ORDERED: ESCITALOPRAM OXALATE 10 MG TAB PO SCH (09:00)
[2017-07-26] MEDS ORDERED: CYANOCOBALAMIN 500 MCG TAB (VIT B-12) PO SCH (09:00)
[2017-07-26] MEDS ORDERED: ASPIRIN 325 MG ECTAB PO SCH (09:00)
--- NOTE | 2017-07-26 09:02 | Anesthesiology Progress Note ---
Anesthesia Post Op Note Date & Time Jul 26, 2017 at 09:02 Vital Signs Pain Intensity: 0.0 Vital Signs Past 12 Hours Date Time Temp Pulse Resp B/P (MAP) Pulse Ox O2 Delivery O2 Flow Rate FiO2 07/26/17 08:15 36.5 66 12 122/75 (91) 93 Room Air 07/26/17 03:28 36.4 95 18 131/85 (100) 93 Room Air 07/26/17 00:15 Room Air 07/25/17 22:50 36.5 68 16 137/73 (94) 90 Nasal Cannula 2.0 Notes Mental Status: alert / awake / arousable, participated in evaluation Pt Amnestic to Procedure: Yes Nausea / Vomiting: adequately controlled Pain: adequately controlled Airway Patency, RR, SpO2: stable & adequate BP & HR: stable & adequate Hydration State: stable & adequate Anesthetic Complications: no major complications apparent
--- NOTE | 2017-07-26 09:59 | Urology Consultation ---
History General Date of Service: Jul 26, 2017. Primary Care Physician: Gemma Huggins., DO Pt seen a urologist before?: Yes If yes, why?: BPH History of Present Illness Status post right shoulder surgery yesterday, unfortunately was unable to void overnight He attempted straight catheterization on numerous occasions without success - and a return of blood Ultimately had a a Parkinson catheter placed (with moderate difficulty) - which successfully drained his bladder Currently feels fine with the catheter in place He has a urologist in [place], [place] Laboratory Labs were reviewed and are within normal limits unless listed below. Labs are available in the chart and at [facility] Past History arthritis, BPH, high cholesterol, hypertension Past Surgical History: orthopedic surgery, other (Inguinal hernia) Family History Noncontributory Social History Hx Tobacco Use In Past Year?: No Allergies Coded Allergies: No Known Allergies (Unverified , 07/25/17) Medications Home Medications: Home Meds and Scripts Medications Dose Route/Sig Max Daily Dose Days Date Category Zofran (Ondansetron HCl) 8 Mg Tab 8 Mg PO Q8 PRN 07/26/17 Rx Docusate Sodium 100 Mg Cap 100 Mg PO BID 10 07/26/17 Rx Oxycodone HCl 5 Mg Tab 5-10 Mg PO Q4H PRN 07/26/17 Rx Celebrex (Celecoxib) 200 Mg Cap 200 Mg PO BID 30 07/26/17 Rx Aspirin 325 Mg Ectab 325 Mg PO QAM 30 07/26/17 Rx Sb Non-Aspirin Extra Stre (Acetaminophen) 500 Mg Tab 1,000 Mg PO Q8 07/26/17 Rx Vitamin D 10437 Unit (Ergocalciferol) 50,000 Unit Cap 1 Cap PO WK 84 06/21/17 Reported Vitamin B-12 (Cyanocobalamin) 1,000 Mcg Tab 1,000 Mcg PO QAM 04/18/17 Reported Norvasc (Amlodipine Besylate) 5 Mg Tab 5 Mg PO HS 04/18/17 Reported Flomax (Tamsulosin Hcl) 0.4 Mg Cap 0.4 Mg PO QPM 04/18/17 Reported Pravachol (Pravastatin Sodium) 20 Mg Tab 20 Mg PO HS 04/18/17 Reported Hyzaar 25MG/100MG (HCTZ/Losartan Potassium) Tab 1 Tab PO QAM 04/18/17 Reported Lexapro (Escitalopram Oxalate) 10 Mg Tab 10 Mg PO QAM 04/18/17 Reported Inpatient Medications: Current Inpatient Medications Medications (Trade) Dose Ordered Sig/Alli Route Start Time Stop Time Status Last Admin Dose Admin Ketorolac Tromethamine (Toradol Inj) 15 mg Q6 IV. 07/25/17 18:00 07/26/17 17:59 07/26/17 05:24 15 MG Diphenhydramine HCl (Benadryl Cap) 25 mg Q8 PRN PO 07/25/17 14:15 08/24/17 14:14 Zolpidem Tartrate (Ambien Tab) 5 mg HSZ PRN PO 07/25/17 14:15 08/24/17 14:14 Ondansetron HCl (Zofran Inj) 4 mg Q6H PRN IV 07/25/17 14:15 08/24/17 14:14 07/25/17 19:43 4 MG Al Hydroxide/Mg Hydroxide (Maalox Susp) 30 ml Q4H PRN PO 07/25/17 14:15 08/24/17 14:14 Pantoprazole Sodium (Protonix Tab) 40 mg QAM PO 07/26/17 09:00 07/30/17 08:59 07/26/17 08:28 40 MG Celecoxib (CeleBREX CAP) 200 mg BID PO 07/26/17 21:00 08/25/17 20:59 Oxycodone HCl (Roxicodone Immediate Rel Tab) `1-2 TABS FOR PAIN `1 TAB... Q4H PRN PO 07/25/17 14:15 08/08/17 14:14 Acetaminophen (Tylenol Tab) 1,000 mg Q8 PO 07/25/17 22:00 08/24/17 21:59 07/26/17 05:25 1,000 MG Magnesium Hydroxide (Milk Of Magnesia Susp) 30 ml Q6H PRN PO 07/25/17 14:15 08/24/17 14:14 Bisacodyl (Dulcolax Supp) 10 mg DAILY PRN SD 07/25/17 14:15 08/24/17 14:14 Sodium Biphosphate/ Sodium Phosphate (Fleet Enema) 132 ml DAILY PRN SD 07/25/17 14:15 08/24/17 14:14 Senna (Senokot Tab) 17.2 mg HS PO 07/25/17 21:00 08/24/17 20:59 Docusate Sodium (coLACE CAP) 100 mg BID PO 07/25/17 21:00 08/24/17 20:59 07/26/17 08:28 100 MG Multivitamins (Multivitamin Tab) 1 tab DAILY PO 07/26/17 09:00 08/25/17 08:59 07/26/17 08:27 1 TAB Amlodipine Besylate (Norvasc Tab) 5 mg HS PO 07/25/17 21:00 08/24/17 20:59 07/25/17 21:54 5 MG Cyanocobalamin (Vitamin B-12 Tab) 1,000 mcg QAM PO 07/26/17 09:00 08/25/17 08:59 07/26/17 08:28 1,000 MCG Escitalopram Oxalate (Lexapro Tab) 10 mg QAM PO 07/26/17 09:00 08/25/17 08:59 07/26/17 08:27 10 MG HCTZ/Losartan Potassium (Hyzaar 50-12.5 Tab) 1 tab QAM PO 07/26/17 09:00 08/25/17 08:59 07/26/17 08:27 1 TAB Pravastatin Sodium (Pravachol Tab) 20 mg HS PO 07/25/17 21:00 08/24/17 20:59 07/25/17 21:54 20 MG Tamsulosin HCl (Flomax Cap) 0.4 mg QPM PO 07/25/17 21:00 08/24/17 20:59 07/25/17 21:54 0.4 MG Morphine Sulfate (MoRPHine SULFATE INJ) 2 mg Q4HWA PRN IV 07/25/17 14:15 08/08/17 14:14 Aspirin (Ecotrin Tab) 325 mg QAM PO 07/26/17 09:00 08/25/17 08:59 07/26/17 08:29 325 MG Morphine Sulfate (MoRPHine SULFATE INJ) 4 mg Q4HWA PRN IV 07/25/17 15:30 08/08/17 15:29 Morphine Sulfate (MoRPHine SULFATE INJ) 6 mg Q4HWA PRN IV 07/25/17 15:30 08/08/17 15:29 Promethazine HCl 25 mg/Sodium Chloride 51 ml @ 204 mls/hr Q6H PRN IV 07/25/17 21:15 08/24/17 21:14 07/25/17 21:27 204 MLS/HR Lidocaine HCl (Xylocaine Jelly 2%) UD PRN EXT 07/25/17 22:45 08/24/17 22:44 07/25/17 23:09 30 ML Review of Systems Review of Systems Constitutional: No see HPI, No fever, No chills, No frequent headaches, No weight loss, No problem reported Eyes: No see HPI, No blurred vision, No double vision, No eye pain, No loss of night vision, No problem reported Neurological: No see HPI, No dizzy, No passing out, No numbness/tingling, No seizures, No problem reported Endocrine: No see HPI, No excessive thirst, No too hot, No too cold, No tired/ sluggish, No problem reported Gastrointestinal: + abdominal pain Cardiovascular: No see HPI, No heart murmur, No chest pain, No angina, No irregular heartbeat, No palpitations, No swelling ankles/feet, No problem reported Respiratory: No see HPI, No shortness of breath, No wheezing, No coughing up blood, No chronic cough, No problem reported Skin: No see HPI, No rash, No boils, No dry skin, No problem reported Musculoskeletal: + joint pain Blood / Lymphatic: No see HPI, No bleed easily, No bruise easily, No swollen glands, No problem reported Ears / Nose / Throat: No see HPI, No hearing loss, No sinus, No hoarse voice, No sore throat, No problem reported Psychologic / Mental: No see HPI, No nervous, No trouble remembering, No difficulty sleeping, No problem reported Male : + frequent urination, + urinary retention, + problem reported All Other Systems: Reviewed and Negative Physical Exam Vital Signs: Vital Signs Past 12 Hours Date Time Temp Pulse Resp B/P (MAP) Pulse Ox O2 Delivery O2 Flow Rate FiO2 07/26/17 08:15 36.5 66 12 122/75 (91) 93 Room Air 07/26/17 03:28 36.4 95 18 131/85 (100) 93 Room Air 07/26/17 00:15 Room Air 07/25/17 22:50 36.5 68 16 137/73 (94) 90 Nasal Cannula 2.0 Physical Exam: General Appearance: WD/WN, no apparent distress (Obese, in bed with right arm sling in place; Parkinson catheter draining relatively clear urine) Eyes: bilateral eyes normal inspection, bilateral eyes PERRL, bilateral eyes EOMI ENT: normal ENT inspection, hearing grossly normal Neck: no adenopathy Respiratory/Chest: no respiratory distress, no accessory muscle use Cardiovascular: no edema Gastrointestinal: Abdomen: normal abdomen Bladder: normal bladder Renal: normal renal Extremities: no pedal edema, no calf tenderness Neurologic/Psychiatric: alert, normal mood/affect, oriented x 3 Skin: warm/dry Lymphatic: + axilla node tender (R) Assessment & Plan Assessment & Plan Postoperative urinary retention in the setting of chronic BPH Plan to discharge home with catheter in place Start Flomax if he is not already on this Recommended he contact his urologist for voiding trial later this week or early next week - if they are unable to accommodate him, he can call our office and we will arrange for a voiding trial
[2017-07-26 11:03] VITALS: O2SAT 93
[2017-07-26 12:27] VITALS: BP 120/78; PULSE 65; TEMP 36.5; O2SAT 93
[2017-07-26 13:41] VITALS: BP 120/78; PULSE 65; TEMP 36.5; O2SAT 93
--- NOTE | 2017-07-26 15:06 | Discharge Summary ---
Orthopedic Discharge Summary Admission Date/Reason Jul 25, 2017 at 10:45 Right Shoulder Osteoarthritis. Discharge Date/Disposition Jul 26, 2017 Home Diagnosis Principal Diagnosis: right shoulder arthritis Procedure(s) Performed Right Shoulder Resurfacing utilizing tournier 48 x 18 resurfacing hemiarthroplasty head Consultations Urology- urinary retention Plan to discharge home with catheter in place Start Flomax if he is not already on this Recommended he contact his urologist for voiding trial later this week or early next week - if they are unable to accommodate him, he can call our office and we will arrange for a voiding trial Medication Reconciliation New Medications: Ondansetron Hcl (Zofran) 8 Mg Tab 8 MG PO Q8 PRN for Nausea, #20 TAB Acetaminophen (Sb Non-Aspirin Extra Stre) 500 Mg Tab 1000 MG PO Q8, #63 TAB Aspirin (Aspirin) 325 Mg Ectab 325 MG PO QAM for 30 Days, #30 TAB Celecoxib (Celebrex) 200 Mg Cap 200 MG PO BID for 30 Days, #60 CAP Docusate Sodium (Docusate Sodium) 100 Mg Cap 100 MG PO BID for 10 Days, #20 CAP Oxycodone HCl (Oxycodone HCl) 5 Mg Tab 5-10 MG PO Q4H PRN for Pain, #90 TAB Continued Medications: Amlodipine (Norvasc) 5 Mg Tab 5 MG PO HS, TAB Cyanocobalamin (Vitamin B-12) 1,000 Mcg Tab 1000 MCG PO QAM, TAB Ergocalciferol (Vitamin D 26042 Unit) 50,000 Unit Cap 1 CAP PO WK for 84 Days, #12 CAP Escitalopram (Lexapro) 10 Mg Tab 10 MG PO QAM, TAB Hctz/Losartan (Hyzaar 25MG/100MG) Tab 1 TAB PO QAM Pravastatin (Pravachol ) 20 Mg Tab 20 MG PO HS, TAB Tamsulosin Hcl (Flomax) 0.4 Mg Cap 0.4 MG PO QPM, CAP Admission Physical Exam As per Admitting History & Physical. Hospital Course Patient was a same day admission after undergoing a successful right shoulder resurfacing, He tolerated the procedure well. Post-operatively, his activity was progressed and well tolerated. He developed urinary retention and urology was consulted, truong catheter was placed and will plan for d/c with catheter and f/u with urology postop. Please refer to daily progress notes and PT notes for complete details. After exam on 07/26/17, patient felt to be stable for discharge home with OPPT. Patient will f/u in the office in 2 weeks for further evaluation including x-rays and incision check, sooner if having any issues or concerns. Below are pertinent labs/studies during their hospital stay: Last Resulted CBC 07/26/17 06:02 Last Resulted BMP 07/26/17 06:02 Last Vital Signs Documentation Date Time Temp Pulse Resp B/P (MAP) Pulse Ox O2 Delivery O2 Flow Rate FiO2 07/26/17 13:41 36.5 65 12 93 Room Air 07/26/17 12:27 120/78 (92) 07/25/17 22:50 2.0 Discharge Instructions Please refer to the electronic Patient Visit Report (Discharge Instructions) for additional information.
[2017-07-26] MEDS ORDERED: CeleBREX 200 MG CAP PO SCH (21:00)
== END 2017-07-26 15:10 | disposition home or self-care (01) | DRG 508 ==
LOC: C.ACU 10:05 → C.3E 10:45 → ENRESERV 14:34
PROVIDERS: ADMIT Orthopaedic Surgery; ATTEND Orthopaedic Surgery
PROC: 0RQJ0ZZ Repair Right Shoulder Joint, Open Approach (ICD-10-PCS; principal; 2017-07-25 12:15)
DX: M19.011 Primary osteoarthritis, right shoulder (principal); N40.1 Benign prostatic hyperplasia with lower urinary tract symptoms; N99.89 Other postprocedural complications and disorders of genitourinary system; R33.9 Retention of urine, unspecified; E78.00 Pure hypercholesterolemia, unspecified; I10 Essential (primary) hypertension